=== PATIENT | female | born 1940 | race Caucasian/White ===

== ENCOUNTER 2022-04-03 13:00 | Outpatient (CLI) | payer MEDICARE, BC | END 2022-04-03 13:01 | disposition home or self-care (01) | LOC: CSHRAD 13:00 | PROVIDERS: ATTEND Internal Medicine Cardiovascular Disease | DX: Z95.810 Presence of automatic (implantable) cardiac defibrillator (principal); J90 Pleural effusion, not elsewhere classified | CPT/HCPCS: 71046 ==